=== PATIENT | female | born 1995 | race Asian ===

== ENCOUNTER 2017-01-04 09:03 | Emergency (ER) | payer BC ==
[2017-01-04 10:23] LABS: Hematocrit 37 % (35-47); Hemoglobin 11.5 g/dl (12.0-16.0); Mean Corpuscular HGB Conc 31 g/dl (31-36); Mean Corpuscular Hemoglobin 19 pg (27-31); Mean Corpuscular Volume 62 fL (80-97); Mean Platelet Volume 9 um3 (7.4-10.4); Red Blood Count 5.93 10^6/ul (4.0-5.4); Red Cell Distribution Width 15 % (10.5-15); White Blood Count 7.7 10^3/ul (3.5-10.8)
[2017-01-04 10:33] LABS: Comments Flag Yes
[2017-01-04 10:34] LABS: Add Diff/Slide Review? Slide Review Added
[2017-01-04 10:39] LABS: ALT 6 U/L (7-52); AST 20 U/L (13-39); Albumin 4.3 g/dL (3.2-5.2); Alkaline Phosphatase 47 U/L (34-104); Anion Gap 8 mmol/L (2-11); BUN/Creatinine Ratio 21.4 (8-20); Blood Urea Nitrogen 15 mg/dL (6-24); C Reactive Protein < 1.00 mg/L (< 5.00); CO2 Carbon Dioxide 24 mmol/L (22-32); Calcium 9.3 mg/dL (8.6-10.3); Chloride 104 mmol/L (101-111); EGFR African American 135.8 (>60); EGFR Non-African American 105.6 (>60); Globulin 3.7 g/dL (2-4); Glucose 91 mg/dL (70-100); Sodium 136 mmol/L (133-145)
--- NOTE | 2017-01-04 11:23 | ED ---
Abdominal Pain/Female - HPI Summary HPI Summary: Patient is referred from Urgent care for LLQ pain and a report of blood when she spit after brushing her teeth. Her pain was diffuse this AM and began this morning. It is now in the LLQ primarily. She denies pain like this before. She currently has her period. Her urine and test were negative at Urgent care. She had diarrhea x 2 yesterday. No N/V, fever, chills or vaginal discharge. - History of Current Complaint Chief Complaint: EDAbdPain Stated Complaint: ABD PAIN, COUGHING UP BLOOD Time Seen by Provider: 01/04/17 09:41 Hx Obtained From: Patient ?: No Onset/Duration: Gradual Onset Timing: Constant Severity Initially: Moderate Severity Currently: Severe Pain Intensity: 7 Location: Discrete At: LLQ Radiates: No Character: Dull Aggravating Factor(s): Nothing Alleviating Factor(s): Nothing Associated Signs and Symptoms: Positive: Negative Allergies/Adverse Reactions: Allergies Allergy/AdvReac Type Severity Reaction Status Date / Time No Known Allergies Allergy Verified 01/04/17 09:08 Home Medications: Home Medications NK [No Home Medications Reported] 01/04/17 [History Confirmed 01/04/17] PMH/Surg Hx/FS Hx/Imm Hx Previously Healthy: Yes Infectious Disease History: No Infectious Disease History: Denies: Traveled Outside the [place] in Last 30 Days - Family History Known Family History: Positive: None - Social History Occupation: Student Lives: Alone Alcohol Use: Weekly Alcohol Amount: 1-2 a week - 1 week Substance Use Type: Reports: None Smoking Status (MU): Never Smoked Tobacco Review of Systems Negative: Fever, Chills Negative: Sore Throat, Ear Ache, Nasal Discharge Negative: Shortness Of Breath, Cough Positive: Abdominal Pain, Diarrhea - x2 yesterday Positive: no symptoms reported Negative: Headache All Other Systems Reviewed And Are Negative: Yes Physical Exam Triage Information Reviewed: Yes Vital Signs On Initial Exam: Initial Vitals Temp Pulse Resp BP Pulse Ox 98.3 F 54 16 99/57 100 01/04/17 09:06 01/04/17 09:06 01/04/17 09:06 01/04/17 09:06 01/04/17 09:06 Vital Signs Reviewed: Yes Appearance: Positive: Well-Appearing, No Pain Distress, Thin Skin: Positive: Warm, Skin Color Reflects Adequate Perfusion, Dry, Soft Head/Face: Positive: Normal Head/Face Inspection Eyes: Positive: EOMI, ROLANDO, Conjunctiva Clear ENT: Positive: Hearing grossly normal, Pharynx normal Neck: Positive: Supple, Nontender, No Lymphadenopathy Respiratory/Lung Sounds: Positive: Clear to Auscultation, Breath Sounds Present Cardiovascular: Positive: RRR Abdomen Description: Positive: Soft. Negative: Nontender - mild TTP LLQ, without guarding, CVA Tenderness (R), CVA Tenderness (L), Distended, Guarding, McBurney's Point Tenderness Bowel Sounds: Positive: Present Musculoskeletal: Negative: Edema Left, Edema Right Neurological: Positive: Sensory/Motor Intact, Alert, Oriented to Person Place, Time, NV Bundle Intact Distally, Normal Gait Psychiatric: Positive: Affect/Mood Appropriate AVPU Assessment: Alert - Bruna Coma Scale Coma Scale Total: 15 Diagnostics - Vital Signs Vital Signs Temp Pulse Resp BP Pulse Ox 01/04/17 10:00 53 102/64 100 01/04/17 09:43 58 92 01/04/17 09:42 98.4 F 57 16 99/57 100 01/04/17 09:40 99/57 01/04/17 09:06 98.3 F 54 16 99/57 100 - Laboratory Lab Results: Lab Results 01/04/17 01/04/17 Range/Units 10:12 10:12 WBC 7.7 (3.5-10.8) 10^3/ul RBC 5.93 H (4.0-5.4) 10^6/ul Hgb 11.5 L (12.0-16.0) g/dl Hct 37 (35-47) % MCV 62 L (80-97) fL MCH 19 L (27-31) pg MCHC 31 (31-36) g/dl RDW 15 (10.5-15) % Plt Count 356 (150-450) 10^3/ul MPV 9 (7.4-10.4) um3 Neut % (Auto) 69.2 (38-83) % Lymph % (Auto) 23.4 L (25-47) % [place] % (Auto) 6.0 (1-9) % Eos % (Auto) 0.5 (0-6) % Baso % (Auto) 0.9 (0-2) % Absolute Neuts (auto) 5.3 (1.5-7.7) 10^3/ul Absolute Lymphs (auto) 1.8 (1.0-4.8) 10^3/ul Absolute Monos (auto) 0.5 (0-0.8) 10^3/ul Absolute Eos (auto) 0 (0-0.6) 10^3/ul Absolute Basos (auto) 0.1 (0-0.2) 10^3/ul Absolute Nucleated RBC 0 10^3/ul Nucleated RBC % 0 Sodium 136 (133-145) mmol/L Potassium 4.0 (3.5-5.0) mmol/L Chloride 104 (101-111) mmol/L Carbon Dioxide 24 (22-32) mmol/L Anion Gap 8 (2-11) mmol/L BUN 15 (6-24) mg/dL Creatinine 0.70 (0.51-0.95) mg/dL Est GFR ( Amer) 135.8 (>60) Est GFR (Non-Af Amer) 105.6 (>60) BUN/Creatinine Ratio 21.4 H (8-20) Glucose 91 (70-100) mg/dL Calcium 9.3 (8.6-10.3) mg/dL Total Bilirubin 0.40 (0.2-1.0) mg/dL AST 20 (13-39) U/L ALT 6 L (7-52) U/L Alkaline Phosphatase 47 (34-104) U/L C-Reactive Protein < 1.00 (< 5.00) mg/L Total Protein 8.0 (6.4-8.9) g/dL Albumin 4.3 (3.2-5.2) g/dL Globulin 3.7 (2-4) g/dL Albumin/Globulin Ratio 1.2 (1-3) Result Diagrams: 01/04/17 10:12 01/04/17 10:12 Lab Statement: Any lab studies that have been ordered have been reviewed, and results considered in the medical decision making process. - Ultrasound No standard instances Ultrasound Interpretation: No Acute Changes Ultrasound Interpretation Completed By: Radiologist Abdominal Pain Fem Course/Dx - Diagnoses Differential Diagnosis: Positive: Appendicitis, Bowel Obstruction, Constipation , Diverticulitis, Ovarian Cyst, , Urinary Tract Infection Provider Diagnoses: Abdominal pain Discharge - Discharge Plan Condition: Stable Disposition: HOME Patient Education Materials: Abdominal Pain (ED) Referrals: [facility] REKHA Alarcon [Primary Care Provider] - Additional Instructions: Your tests were negative for acute findings today. Use 600mg of ibuprofen three times daily with meals to decrease pain during your period. Follow-up with [facility] if symptoms persist. Return to the emergency department if symptoms worsen.
[2017-01-04 11:25] LABS: Add Path Review? YES
[2017-01-04 11:26] LABS: Microcytosis 3+
[2017-01-04 11:28] LABS: Hypochromasia 3+
[2017-01-04 11:29] LABS: Tear Drop Cells 1+
--- NOTE | 2017-01-04 12:39 | RAD ---
INDICATION: Left lower quadrant pelvic pain. COMPARISON: There are no prior studies available for comparison. TECHNIQUE: Multiple real-time transvaginal images of the pelvis were obtained. FINDINGS: The uterus is normal in size, shape and echogenicity. The uterus measured 7.7 x 3.4 x 4.5 cm. The endometrial echo measured 0.3 cm in thickness. The right ovary measured 2.5 x 1.8 x 3.0 cm. The left ovary measured 2.6 x 1.3 x 1.6 cm. There are multiple small bilateral follicular cysts. There is vascular flow within both ovaries. There is a small amount of free intraperitoneal fluid in the cul-de-sac. IMPRESSION: SMALL AMOUNT OF FREE INTRAPERITONEAL FLUID, OTHERWISE UNREMARKABLE STUDY.
[2017-01-04 13:23] VITALS: BP 99/53
== END 2017-01-04 13:20 | disposition home or self-care (01) ==
LOC: ED 09:03
DX: R10.32 Left lower quadrant pain (principal)
CPT/HCPCS: 36415; 76830; 80053; 85025; 85060; 86140; 99283